=== PATIENT | female | born 1950 | race Asian ===

== ENCOUNTER 2018-06-13 08:29 | Day surgery (SDC) | payer BC ==
[~2018-06-13] VITALS: Ht 167.6 cm; Wt 81.6 kg
[2018-06-13] VITALS (9 sets, daily range): BP systolic 114–149; BP diastolic 50–94
[2018-06-13] MEDS ORDERED: LR 1000ml ONE (09:00)
[2018-06-13] MEDS ORDERED: Propofol 200mg/20ml IV ONE (09:00)
[2018-06-13] MEDS ORDERED: Lidocaine 1% MPF 10mg/ml 5ml ONE (09:00)
[2018-06-13] MEDS ORDERED: BP PO (09:07)
--- NOTE | 2018-06-13 09:16 | Pre-Procedure Note/Attestation ---
Pre-Procedure Note/Attestation Complete Prior to Procedure Procedure Narrative: colonoscopy Indications for Procedure Pre-Operative Diagnosis: screening colon Attestation I attest that I discussed the nature of the procedure; its benefits; risks and complications; and alternatives (and the risks and benefits of such alternatives ), prior to the procedure, with the patient (or the patient's legal school admissions representative). I attest that, if there was a reasonable possibility of needing a blood transfusion, the patient (or the patient's legal school admissions representative) was given the [facility] standardized written summary, pursuant to the Jan Navarro Blood Safety Act ([place] Health and Safety Code # 1645, as amended). I attest that I re-evaluated the patient just prior to the surgery and that there has been no change in the patient's H&P, except as documented below: Jose Guadalupe Key MD Jun 13, 2018 09:16
--- NOTE | 2018-06-13 09:18 | Short Stay Surgery H&P ---
History of Present Illness History of Present Illness Chief Complaint screening colon HPI Kia Artis is a 67 year old female who was admitted on for Colon Screening Patient History Allergies: Coded Allergies: No Known Allergies (Unverified , 06/13/18) PAST MEDICAL HISTORY: (1) Hemorrhoid Medication History Scheduled [Bp], PO BID, (Reported) Review of Systems Cardiovascular: Reports: no symptoms Respiratory: Reports: no symptoms Skeletal: Reports: no symptoms Gastrointestinal: Reports: no symptoms Genitourinary: Reports: no symptoms Neurologic: Reports: no symptoms Hematologic: Reports: no symptoms Physical Exam Vital Signs Last Vital Signs Date Time Temp Pulse Resp B/P (MAP) Pulse Ox O2 Delivery O2 Flow Rate FiO2 06/13/18 09:07 Room Air Skin: normal HENT: normal Heart: normal Lungs: normal Abdomen: normal Extremities: normal Plan Plan of Care colonoscopy Attestation Are the patient's medical conditions optimized for surgery? Attestation Response: yes Jose Guadalupe Key MD Jun 13, 2018 09:18
--- NOTE | 2018-06-13 09:38 | Endoscopy Procedure Note ---
Endoscopy Procedure Note General Indication for Procedure: screening colon Procedures Performed: colonoscopy Operative Findings/Diagnosis: 2 polyps Specimen: yes Pt Tolerated Procedure Well: Yes Estimated Blood Loss: none Anesthesia Anesthesiologist: luke Anesthesia: MAC Inserted Devices Implant(s) used?: No Quality Quality of Bowel Preparation: Good Did scope reach the cecum?: Yes Was there any complications?: No GI Core Measures 50 yrs or older w/o bx or poly: No 10yrs. F/U not recommended: Yes If not recommended, why?: Above average risk 10 yrs. F/U needed: Yes 18 years or older w/prev. colo: Yes <3yrs. since last colonoscopy: No Jose Guadalupe Key MD Jun 13, 2018 09:38
--- NOTE | 2018-06-13 09:39 | Anethesia Preoperative Eval ---
Anesthesia Pre-op PMH/ROS General Date of Evaluation: Jun 13, 2018 Time of Evaluation: 09:15 Anesthesiologist: paco ASA Score: ASA 2 Mallampati Score Class I : Soft palate, uvula, fauces, pillars visible Class II: Soft palate, uvula, fauces visible Class III: Soft palate, base of uvula visible Class IV: Only hard plate visible Mallampati Classification: Class II Surgeon: feli Diagnosis: screening Surgical Procedure: colonoscopy Anesthesia History: none Allergies: Coded Allergies: No Known Allergies (Unverified , 06/13/18) Medications: see eMAR Patient NPO?: Yes Past Medical History Cardiovascular: Denies: HTN, CAD, [place], valve dz, arrhythmia, other Pulmonary: Denies: asthma, COPD, SENAIT, other Gastrointestinal/Genitourinary: Reports: GERD Neurologic/Psychiatric: Denies: dementia, CVA, depression/anxiety, TIA, other Endocrine: Denies: DM, hypothyroidism, steroids, other HEENT: Denies: cataract (L), cataract (R), glaucoma, GRAYLING (L), GRAYLING (R), other Hematology/Immune: Denies: anemia, DVT, bleeding disorder, other Other: obesity PSxH Narrative: colonoscopy Anesthesia Pre-op Phys. Exam Physician Exam Last Vital Signs Date Time Temp Pulse Resp B/P (MAP) Pulse Ox O2 Delivery O2 Flow Rate FiO2 06/13/18 09:10 97.7 81 20 129/92 97 Room Air Constitutional: NAD Neurologic: CN 2-12 intact Cardiovascular: RRR Respiratory: CTA Gastrointestinal: S/NT/ND Airway Exam Mallampati Classification 2 Mallampati Score: Class II MO: full Neck: thick TMD: 2fb ROM: full Dentures: no upper, no lower Anesthesia Pre-op A/P Risk Assessment & Plan Plan: mac Pre-Antibiotics Drug: none Lucy Breaux CRNA Jun 13, 2018 09:39
--- NOTE | 2018-06-13 09:49 | Immediate Post-Op Evaluation ---
Immediate Post-Op Evalulation Immediate Post-Op Evalulation Procedure: colonoscopy Date of Evaluation: Jun 13, 2018 Time of Evaluation: 09:45 IV Fluids: 500 Blood Pressure Systolic: 116 Blood Pressure Diastolic: 67 Pulse Rate: 67 Respiratory Rate: 16 O2 Sat by Pulse Oximetry: 99 Temperature (Fahrenheit): 97.1 Pain Score (1-10): 0 Nausea: No Vomiting: No Complications none Patient Status: awake, reacts, patent Hydration Status: adequate Drug: none Lucy Breaux CRNA Jun 13, 2018 09:49
--- NOTE | 2018-06-13 14:29 | 48 Hour Post Anesthesia Eval ---
Post Anesthesia Evaluation Procedure: colonoscopy Date of Evaluation: Jun 13, 2018 Time of Evaluation: 14:29 Blood Pressure Systolic: 149 0: 50 Pulse Rate: 79 Respiratory Rate: 14 O2 Sat by Pulse Oximetry: 98 Airway: patent Nausea: No Vomiting: No Hydration Status: adequate Cardiopulmonary Status: stable Mental Status/LOC: patient returned to baseline Follow-up Care/Observations: na Post-Anesthesia Complications: none Follow-up care needed: N/A Lucy Breaux CRNA Jun 13, 2018 14:29
--- NOTE | 2018-06-13 15:45 | Procedure Note ---
DATE OF PROCEDURE: 06/13/2018 SURGEON: Jose Guadalupe Key M.D. PROCEDURE: Colonoscopy with biopsy. ANESTHESIA: Per Jessica ESCALANTE. INSTRUMENT: Olympus adult flexible colonoscope. INDICATION: Screening colonoscopy. REASON FOR PROCEDURE: The procedure, risks, benefits, and possible consequences, including hemorrhage, aspiration, perforation and infection, and alternative treatments, were explained to the patient/legal guardian by Dr. Jose Guadalupe Key and the patient/legal guardian understood and accepted these risks. DESCRIPTION OF PROCEDURE: After informed consent was obtained and the patient was adequately sedated, first rectal exam was performed which was normal except for internal hemorrhoids. Then, the scope was advanced from rectum into the cecum, documented by the appendix orifice, ileocecal valve, and right upper quadrant palpation. Quality of prep was good. The patient had two polyps in the cecum, each about 2 to 3 mm in size, removed with the cold biopsy forceps technique. The patient had scattered diverticulosis in the right colon, interestingly nothing in the left colon. The rest of the colonic examination grossly looked within normal limits. Retroflexion of rectum showed evidence of medium-sized internal hemorrhoids. SUMMARY OF FINDINGS: 1. Two colonic polyps removed, see above for details. 2. Right-sided diverticulosis. 3. Internal hemorrhoids. RECOMMENDATIONS: 1. Follow up biopsy results and treat accordingly. 2. We recommend repeat colonoscopy in 5 years. I want to thank, Dr. Jamison Jimenes, for this kind referral. Jose Guadalupe Key M.D. DR: VENICE JOB#: [id number] CC: Jamison Jimenes M.D.; Fax#: [phone]
--- NOTE | 2018-06-17 15:40 | Cardiology Report ---
APPROVED REPORT EKG Measurement Heart [id number] [place] [id number] [id number] Normal sinus rhythm Normal ECG
== END 2018-06-13 10:45 | disposition home or self-care (01) ==
LOC: GAS 08:29
DX: Z12.11 Encounter for screening for malignant neoplasm of colon (principal); D12.0 Benign neoplasm of cecum; K57.30 Diverticulosis of large intestine without perforation or abscess without bleeding; K64.8 Other hemorrhoids; K21.9 Gastro-esophageal reflux disease without esophagitis; E66.9 Obesity, unspecified
CPT/HCPCS: 45380; 93005; J2704; 94003; 94150